=== PATIENT | male | born 1980 | race Caucasian/White ===

== ENCOUNTER 2018-05-30 10:28 | Emergency (ER) | payer BC ==
[2018-05-30] MEDS: morphine 2 MG INJ IV (11:37)
[2018-05-30] MEDS: ONDANSETRON (ODT) 4 MG TAB ODT (11:37)
[2018-05-30 11:46] LABS: ADD MAN DIFF? NO
[2018-05-30 11:50] LABS: WHITE BLOOD COUNT 9.9 10^3/ul (4.8-10.8)
[2018-05-30 11:50] LABS: BASOPHILS % 0.3 % (0.0-2.0); EOSINOPHILS # 0.1 10^3/ul (0.0-0.5); EOSINOPHILS % 0.9 % (0.0-7.0); HEMATOCRIT 46.7 % (42.0-52.0); HEMOGLOBIN 16.2 g/dl (14.0-18.0); LYMPHOCYTES # 2.2 10^3/ul (0.8-2.9); LYMPHOCYTES % 22.4 % (15.0-51.0); MEAN CORPUSCULAR HEMOGLOBIN 29.9 pg (29.0-33.0); MEAN CORPUSCULAR HGB CONC 34.7 g/dl (32.0-37.0); MEAN CORPUSCULAR VOLUME 86.3 fl (82.0-101.0); MEAN PLATELET VOLUME 10.2 fl (7.4-10.4); MONOCYTE # 0.7 10^3/ul (0.3-0.9); MONOCYTES % 7.1 % (0.0-11.0); NEUTROPHIL # 6.8 10^3/ul (1.6-7.5); NEUTROPHILS % 68.9 % (39.0-77.0); PLATELET COUNT 391 10^3/UL (140-415); RED BLOOD COUNT 5.41 10^6/ul (4.70-6.10); RED CELL DISTRIBUTION WIDTH 12.4 % (11.5-14.5)
[2018-05-30 12:17] LABS: ANION GAP 13 (8-16); BLOOD UREA NITROGEN 18 mg/dl (7-20); CALCIUM 10.1 mg/dl (8.4-10.2); CARBON DIOXIDE 29 mmol/L (21-31); CHLORIDE 106 mmol/L (97-110); CREATININE 1.19 mg/dl (0.61-1.24); GLUCOSE 93 mg/dl (70-220); POTASSIUM 4.7 mmol/L (3.5-5.1); SODIUM 143 mmol/L (135-144)
[2018-05-30] MEDS: SOD CHLORIDE 0.9% 1,000 ML IV (12:53)
[2018-05-30] MEDS: KETOROLAC 30 MG INJ IV (12:56)
[2018-05-30] MEDS: LEVOFLOXACIN 750MG/D5W (PMX) 150 ML IVPB (12:56)
[2018-05-30] MEDS: LORAZEPAM 1 MG TAB PO (13:28)
== END 2018-05-30 13:55 | disposition home or self-care (01) ==
LOC: FTE 10:28
DX: N45.1 Epididymitis (principal); J45.909 Unspecified asthma, uncomplicated
CPT/HCPCS: 36415; 76870; 80048; 85025; 96374; 96375; 99285-25